=== PATIENT | female | born 1995 | race Two or more races ===

== ENCOUNTER 2018-05-18 13:30 | Inpatient (IN) | payer OTHER ==
[2018-05-18] MEDS ORDERED: AMPICILLIN SODIUM 2 GM VIAL ONE (15:28)
[2018-05-18] MEDS ORDERED: AMPICILLIN - 2 GM in SODIUM CHLORIDE 100 ML IVPB ONE (15:30)
[2018-05-18] MEDS: DEXTROSE 5%-LACTATED RINGERS 1,000 ML IV SCH ×2 (15:30→23:08)
[2018-05-18] MEDS ORDERED: TUBERCULIN PPD 5 TU/0.1ML SYRINGE (IN PATIENT USE ONLY) ID ONE (16:00)
[2018-05-18 16:04] VITALS: BMI 29.5
[2018-05-18 17:02] LABS: BASO % 0.6 % (0-2.0); EOS % 0.6 % (0-4.5); HEMATOCRIT 40.9 % (32.4-45.2); HEMOGLOBIN 13.8 GM/dL (10.7-15.3); LYMPH % 16.8 % (8-40); MCH 26.9 pg (25.7-33.7); MCHC 33.6 g/dl (32.0-36.0); MEAN CELL VOLUME 80.1 fl (80-96); MEAN PLT VOLUME 8.7 fl (7.5-11.1); MONO % 7.3 % (3.8-10.2); NEUT % 74.7 % (42.8-82.8); PLATELET COUNT 334 K/MM3 (134-434); RBC 5.11 M/mm3 (3.60-5.2); WHITE BLOOD COUNT 10.4 K/mm3 (4.0-10.0)
[2018-05-18 17:17] LABS: INR 0.94 (0.83-1.09); PROTHROMBIN TIME (PATIENT) 11.1 SEC (9.7-13.0)
[2018-05-18 17:33] LABS: ANION GAP 7 MMOL/L (8-16); BLOOD UREA NITROGEN 9 mg/dL (7-18); CALCIUM 9.2 mg/dL (8.5-10.1); CHLORIDE 105 mmol/L (98-107); CO2 25 mmol/L (21-32); CREATININE 0.9 mg/dL (0.55-1.3); GLUCOSE,RANDOM 68 mg/dL (74-106); POTASSIUM 4.9 mmol/L (3.5-5.1); SODIUM 137 mmol/L (136-145)
[2018-05-18] MEDS ORDERED: AMPICILLIN SODIUM 1 GM VIAL ONE ×2 (19:22→23:32)
[2018-05-18] MEDS: AMPICILLIN - 1 GM in SODIUM CHLORIDE 100 ML IVPB SCH ×2 (19:40→23:30)
[2018-05-18] MEDS ORDERED: BUTORPHANOL TARTRATE 2 MG/ML VIAL IVPB ONE (20:30)
[2018-05-18] MEDS ORDERED: PROMETHAZINE HCL 25 MG/1 ML VIAL IVPB ONE (20:30)
[2018-05-18] MEDS ORDERED: PROMETHAZINE HCL 25 MG/1 ML VIAL ONE (20:45)
[2018-05-18] MEDS ORDERED: BUTORPHANOL TARTRATE 1 MG/ML VIAL ONE ×2 (20:45)
[2018-05-18] MEDS ORDERED: OXYTOCIN 30 UNITS in 0.9% NS 30 UNIT/500 ML INFUS.BAG IVPB SCH (23:45)
--- NOTE | 2018-05-18 23:52 | HP ---
Past Medical History - Primary Care Physician PCP:: Harry Mendez - Admission Chief Complaint: 37 weeks, rom, early labor History of Present Illness: 22 yo f 37 weeks, with prom , clear fluid,, mild cramps ,cx 3 cm 80 vx -3, mr, fhr cat i , irregular contraction History Source: Patient Limitations to Obtaining History: No Limitations - Past Medical History ...: 1 ...Para: 0 ...Term: 0 ...: 0 ...Spon : 0 ...Induced : 0 ...Multiple Gestation: 0 ...LMP: 08/27/17 ... Weeks Gestation by Dates: 37.5 ...EDC by Dates: 06/03/18 ...EDC by Sono: 06/05/18 - Past Surgical History Hx Myomectomy: No Hx Transabdominal Cerclage: No - Smoking History Smoking history: Never smoked Have you smoked in the past 12 months: No - Alcohol/Substance Use Hx Alcohol Use: No - Social History Usual Living Arrangement: Yes: With Spouse Home Medications - Allergies Allergies/Adverse Reactions: Allergies Allergy/AdvReac Type Severity Reaction Status Date / Time No Known Allergies Allergy Verified 05/18/18 14:22 - Home Medications Home Medications: Ambulatory Orders Nitrofurantoin Macrocrystal [Nitrofurantoin] 100 mg PO BID 05/18/18 Pnv No.95/Ferrous Fum/Folic AC [ Formula] 1 each PO DAILY 05/18/18 Review of Systems - Review of Systems Constitutional: reports: No Symptoms Eyes: reports: No Symptoms HENT: reports: No Symptoms Neck: reports: No Symptoms Cardiovascular: reports: No Symptoms Respiratory: reports: No Symptoms Gastrointestinal: reports: No Symptoms Genitourinary: reports: No Symptoms Breasts: reports: No Symptoms Reported Musculoskeletal: reports: No Symptoms Integumentary: reports: No Symptoms Neurological: reports: No Symptoms Endocrine: reports: No Symptoms Hematology/Lymphatic: reports: No Symptoms Psychiatric: reports: No Symptoms Physical Exam - Maternity Vital Signs: Vital Signs Temperature 98.3 F 05/18/18 22:00 Pulse Rate 76 05/18/18 23:00 Respiratory Rate 20 05/18/18 23:00 Blood Pressure 104/56 L 05/18/18 23:00 O2 Sat by Pulse Oximetry (%) Constitutional: Yes: Well Nourished, No Distress, Calm Eyes: Yes: WNL, Conjunctiva Clear, EOM Intact HENT: Yes: WNL, Atraumatic, Normocephalic Neck: Yes: WNL, Supple, Trachea Midline Cardiovascular: Yes: WNL, Regular Rate and Rhythm Breast(s): Yes: WNL - Abdominal Exam/OB Fundal Height: 38 Number of Fetuses: Single Presentation: Vertex Contractions: Yes Regularity: Irregular Intensity: Mild Monitor Mode: External Heart Rate Location: [facility] Category: I Accelerations: Uniform Decelerations: None - Vaginal Exam/OB Vaginal Bleediing: No Speculum Exam: No Dilatation (cm): 3 cm Effacement (%): 80 Amniotic Membrane Status: Ruptured Nitrazine Test: Positive Amniotic Fluid: Yes: Clear Presentation: Vertex/Position Station: -3 - Physical Exam Musculoskeletal: Yes: WNL Edema: LLE: Trace, RLE: Trace Deep Tendon Reflex Grade: Normal +2 ...Motor Strength: WNL Psychiatric: Yes: WNL - Labs Lab Results: CBC, BMP 05/18/18 16:30 05/18/18 16:30 Hemorrhage Risk Assessment - Risk Factors Medium Risk Factors: Yes: None High Risk Factors: Yes: None Risk Score: 1 Risk Level: Medium Risk Problem List - Problems (1) with 37 weeks completed gestation Code(s): Z3A.37 - 37 WEEKS GESTATION OF (2) PROM (premature rupture of membranes) Code(s): O42.90 - SETH ROM, 7TH0 BETW RUPT & ONST LABR, UNSP WEEKS OF GEST Qualifiers: PROM onset of labor timing: onset of labor within 24 hours of rupture PROM gestational age: -third trimester Qualified Code(s): O42.013 - premature rupture of membranes, onset of labor within 24 hours of rupture, third trimester Assessment/Plan admit fhm pain mamagement if contraction not regiular , pitocin, rba discused
--- NOTE | 2018-05-18 23:54 | PN ---
Progress Note (short form) - Note Progress Note: cx 3 cm 80 vx -3 mr, clear, fhr cat i, irregular contraction Problem List - Problems (1) with 37 weeks completed gestation Code(s): Z3A.37 - 37 WEEKS GESTATION OF (2) PROM (premature rupture of membranes) Code(s): O42.90 - SETH ROM, 7TH0 BETW RUPT & ONST LABR, UNSP WEEKS OF GEST Qualifiers: PROM onset of labor timing: onset of labor within 24 hours of rupture PROM gestational age: -third trimester Qualified Code(s): O42.013 - premature rupture of membranes, onset of labor within 24 hours of rupture, third trimester
[2018-05-19] MEDS ORDERED: OXYTOCIN 30 UNITS in 0.9% NS 30 UNIT/500 ML INFUS.BAG IVPB ONE (00:10)
[2018-05-19] MEDS ORDERED: ELECTROLYTE-148 SOLN 1,000 ML IV SCH (00:30)
[2018-05-19] MEDS ORDERED: FENTANYL/BUPIVACAINE/NS/PF - PCEA - 50 ML DISP.SYRIN EP ONE (02:25)
[2018-05-19] MEDS ORDERED: NALOXONE HCL 0.4 MG/ML VIAL IVPUSH PRN (02:38)
[2018-05-19] MEDS ORDERED: BUPIVACAINE HCL/PF 0.25% (2.5MG/ML) 10 ML VIAL ONE (02:41)
[2018-05-19] MEDS ORDERED: LIDO 2%/EPI 1:200000 PRESRVFRE (20 ML SDVIAL) ONE (02:42)
[2018-05-19] MEDS ORDERED: FENTANYL/BUPIVACAINE/NS/PF - PCEA - 50 ML DISP.SYRIN EP SCH (02:45)
[2018-05-19] MEDS ORDERED: AMPICILLIN SODIUM 1 GM VIAL ONE (03:25)
[2018-05-19] MEDS ORDERED: SODIUM CHLORIDE 100 ML IVPB ONE (03:26)
[2018-05-19] MEDS: AMPICILLIN - 1 GM in SODIUM CHLORIDE 100 ML IVPB SCH ×2 (03:30→08:09)
[2018-05-19] MEDS ORDERED: LIDOCAINE HCL 1% PRESERVATIVE FREE - 30ML VIAL ONE ×2 (04:12→04:22)
[2018-05-19] MEDS ORDERED: OXYTOCIN 20 UNITS in 0.9% NS 20 UNIT/1,000 ML INFUS.BAG IV ONE ×2 (04:12→07:09)
[2018-05-19 05:08] LABS: VENOUS PH 7.33 (7.32-7.42)
[2018-05-19 05:09] LABS: VENOUS PC02 50.3 mmHg (38-52); VENOUS PO2 28.3 mmHg (28-48)
[2018-05-19] MEDS ORDERED: BENZOCAINE 28 GM HEMORRHOIDAL OINTMENT TP PRN (05:09)
[2018-05-19] MEDS ORDERED: METHYLERGONOVINE MALEATE 0.2 MG/1 ML AMP IM PRN (05:09)
[2018-05-19] MEDS ORDERED: BENZOCAINE 20% 57 GM BOTTLE TP PRN (05:09)
[2018-05-19] MEDS ORDERED: BISACODYL 10 MG SUPP.RECT RC PRN (05:09)
[2018-05-19] MEDS ORDERED: WITCH HAZEL 50% (TUCKS) 40 PAD/JAR PAD TP PRN (05:09)
[2018-05-19] MEDS ORDERED: D5W-LR W/ 20 UNITS OXYTOCIN 1,000 ML IV SCH (05:15)
[2018-05-19] MEDS ORDERED: OXYTOCIN 20 UNITS in 0.9% NS 20 UNIT/1,000 ML INFUS.BAG IV SCH (05:15)
[2018-05-19 05:18] LABS: ARTERIAL BLOOD GAS pH 7.28 (7.35-7.45)
[2018-05-19 05:19] LABS: ARTERIAL BLOOD GAS PCO2 57.6 mmHg (35-45)
[2018-05-19 05:20] LABS: ARTERIAL BLOOD GAS BASE EXCESS -1.1 meq/l (-2-2)
[2018-05-19 05:25] LABS: ARTERIAL BLOOD GAS PO2 18.4 mmHg (80-100)
[2018-05-19 05:26] LABS: ARTERIAL BLD GAS O2 SATURATION 17.5 % (90-98.9)
[2018-05-19] MEDS: IBUPROFEN 600 MG TABLET (FP) PO PRN ×2 (09:06→20:49)
[2018-05-19] MEDS: ACETAMINOPHEN 325 MG TABLET (FP) PO PRN ×2 (09:07→20:50)
[2018-05-19] MEDS: FERROUS SO4 325 MG TABLET (FP) PO SCH ×2 (09:07→21:03)
[2018-05-19] MEDS: PRENATAL VITAMINS W/ FOLIC ACID TABLET (FP) PO SCH (09:08)
[2018-05-20 07:27] LABS: BASO % 0.5 % (0-2.0); EOS % 0.7 % (0-4.5); HEMOGLOBIN 11.2 GM/dL (10.7-15.3); LYMPH % 22.9 % (8-40); MCH 26.4 pg (25.7-33.7); MCHC 33.1 g/dl (32.0-36.0); MEAN CELL VOLUME 79.9 fl (80-96); MEAN PLT VOLUME 8.6 fl (7.5-11.1); MONO % 7.3 % (3.8-10.2); NEUT % 68.6 % (42.8-82.8); PLATELET COUNT 258 K/MM3 (134-434); RBC 4.26 M/mm3 (3.60-5.2); RDW 14.1 % (11.6-15.6); WHITE BLOOD COUNT 14.1 K/mm3 (4.0-10.0)
[2018-05-20] MEDS: IBUPROFEN 600 MG TABLET (FP) PO PRN ×2 (08:17→19:56)
[2018-05-20] MEDS ORDERED: DIPHTH,PERTUSS(ACELL),TET 0.5 ML DISP.SYRIN IM ONE (10:00)
[2018-05-20] MEDS ORDERED: FLU VACCINE QUAD 60 MCG/0.5 ML (MDV 18-19) IM ONE (10:00)
[2018-05-20] MEDS: PRENATAL VITAMINS W/ FOLIC ACID TABLET (FP) PO SCH (10:04)
[2018-05-20] MEDS: FERROUS SO4 325 MG TABLET (FP) PO SCH ×2 (10:04→22:03)
--- NOTE | 2018-05-20 15:07 | PN ---
Post Progress Note - Subjective Subjective: 22 yo P1 status post vaginal delivery seen and evaluated. Doing well. Type of Delivery: Vital Signs: Vital Signs Temperature 98.3 F 05/20/18 10:00 Pulse Rate 81 05/20/18 10:00 Respiratory Rate 20 05/20/18 10:00 Blood Pressure 123/67 05/20/18 10:00 O2 Sat by Pulse Oximetry (%) 100 05/19/18 08:45 Breast Exam: Yes: Soft Uterus: Yes: Fundus Firm Abdomen/GI: Yes: Abdomen soft, Tolerating PO Lochia: Yes: Rubra Lochia, amount: Moderate Extremities: Yes: Calves non-tender Activity: Ambulating - Labs Labs: CBC WBC 14.1 K/mm3 (4.0-10.0) H 05/20/18 06:30 RBC 4.26 M/mm3 (3.60-5.2) 05/20/18 06:30 Hgb 11.2 GM/dL (10.7-15.3) 05/20/18 06:30 Hct 34.0 % (32.4-45.2) D 05/20/18 06:30 MCV 79.9 fl (80-96) L 05/20/18 06:30 MCH 26.4 pg (25.7-33.7) 05/20/18 06:30 MCHC 33.1 g/dl (32.0-36.0) 05/20/18 06:30 RDW 14.1 % (11.6-15.6) 05/20/18 06:30 Plt Count 258 K/MM3 (134-434) D 05/20/18 06:30 MPV 8.6 fl (7.5-11.1) 05/20/18 06:30 Absolute Neuts (auto) 9.6 K/mm3 (1.5-8.0) H 05/20/18 06:30 Neutrophils % 68.6 % (42.8-82.8) 05/20/18 06:30 Lymphocytes % 22.9 % (8-40) D 05/20/18 06:30 Monocytes % 7.3 % (3.8-10.2) 05/20/18 06:30 Eosinophils % 0.7 % (0-4.5) 05/20/18 06:30 Basophils % 0.5 % (0-2.0) 05/20/18 06:30 Nucleated RBC % 0 % (0-0) 05/20/18 06:30 Problem List - Problems (1) Status post normal vaginal delivery Code(s): [id number] - Assessment/Plan Status post vaginal delivery Stable Continue routine care
[2018-05-20] MEDS: ACETAMINOPHEN 325 MG TABLET (FP) PO PRN (19:57)
[2018-05-20 20:02] VITALS: TEMP 98
[2018-05-20] MEDS ORDERED: SENNOSIDES/DOCUSATE COMBO (SENNA PLUS) TABLET (UD) PO PRN (22:00)
--- NOTE | 2018-05-21 07:10 | DS ---
Physical Exam-TEST DATA DEVELOPER Vital Signs: Vital Signs Temperature 98.0 F 05/20/18 20:02 Pulse Rate 94 H 05/20/18 20:02 Respiratory Rate 20 05/20/18 20:02 Blood Pressure 112/65 05/20/18 20:02 O2 Sat by Pulse Oximetry (%) 100 05/20/18 20:31 Constitutional: Yes: Well Nourished, No Distress, Calm Eyes: Yes: WNL, Conjunctiva Clear, EOM Intact HENT: Yes: WNL, Atraumatic, Normocephalic Neck: Yes: WNL, Supple, Trachea Midline Cardiovascular: Yes: WNL, Regular Rate and Rhythm Respiratory: Yes: WNL, Regular, CTA Bilaterally Gastrointestinal: Yes: WNL ...Rectal Exam: Yes: WNL Renal/: Yes: WNL ....Post : Yes: Uterus firm, Uterus non-tender, Slight lochia rubra Breast(s): Yes: WNL Musculoskeletal: Yes: WNL Extremities: Yes: WNL Edema: Yes Edema: LLE: Trace, RLE: Trace Integumentary: Yes: WNL Neurological: Yes: WNL, Alert, Oriented ...Motor Strength: WNL Psychiatric: Yes: WNL, Alert, Oriented Labs: CBC, BMP 05/20/18 06:30 05/18/18 16:30 Delivery - Delivery Vaginal Delivery: Spontaneous (no complication) Type of Anesthesia: Epidural Episiotomy/Laceration: 2nd degree EBL (cc): 300 Delivery, Single - Stages of Labor Date 1st Stage Initiatied: 05/18/18 Time 1st Stage Initiated: 17:00 Date 2nd Stage Initiated: 05/19/18 Time 2nd Stage Initiated: 04:15 Date of Delivery: 05/19/18 Time of Delivery: 04:35 Time Placenta Delivered: 04:37 Placenta: Yes: Spontaneous - Condition of Manager User Experience/Chlorine Cell Tender Present: No Gender: Female Weight: 6 lb 2 oz Position: Left, OA Total Hours ROM (Hrs/Mins): 15hours/37min - 1 Minute Total Score: 9 5 Minutes Total Score: 9 - [place] Feeding Plan Initial Plan: Elected not to breastfeed exclusively throughout hospitalization Discharge Summary Reason For Visit: LABOR ADMISSION Current Active Problems PROM (premature rupture of membranes) (Acute) with 37 weeks completed gestation (Acute) Status post normal vaginal delivery (Acute) Procedures: Principal: Hospital Course: no complication Condition: Good - Instructions Diet, Activity, Other Instructions: regular diet, no intercourse, follow up [facility] care 4 weeks, if pain, heavy bleeding, fever to ER Referrals: Harry Mendez MD [Staff Physician] - Disposition: HOME - Home Medications Comprehensive Discharge Medication List: Ambulatory Orders Nitrofurantoin Macrocrystal [Nitrofurantoin] 100 mg PO BID 05/18/18 Pnv No.95/Ferrous Fum/Folic AC [ Formula] 1 each PO DAILY 05/18/18 Ibuprofen [Motrin -] 600 mg PO QID #28 tablet 05/20/18
[2018-05-21 10:12] VITALS: BP 110/68; PULSE 76
[2018-05-21] MEDS: IBUPROFEN 600 MG TABLET (FP) PO PRN (11:18)
[2018-05-21] MEDS: FERROUS SO4 325 MG TABLET (FP) PO SCH (11:18)
[2018-05-21] MEDS: ACETAMINOPHEN 325 MG TABLET (FP) PO PRN (11:19)
[2018-05-21] MEDS: PRENATAL VITAMINS W/ FOLIC ACID TABLET (FP) PO SCH (11:20)
== END 2018-05-21 13:50 | disposition home or self-care (01) | DRG 560 ==
LOC: JDEL 13:30 → JLDR 14:10 → J3W 05-19 08:36
PROVIDERS: ADMIT Obstetrics & Gynecology; ATTEND Obstetrics & Gynecology
PROC: 0KQM0ZZ Repair Perineum Muscle, Open Approach (ICD-10-PCS; principal; 2018-05-19)
PROC: 10E0XZZ Delivery of Products of Conception, External Approach (ICD-10-PCS; 2018-05-19)
DX: O42.02 Full-term premature rupture of membranes, onset of labor within 24 hours of rupture (principal); O70.1 Second degree perineal laceration during delivery; Z3A.37 37 weeks gestation of pregnancy; Z37.0 Single live birth
CPT/HCPCS: 36415; 36600; 59025; 59409; 80048; 82803; 85025; 85461; 85610; 85730; 86762; 86850; 86870; 86900; 86901; 86902; 86999; 87389; 90688; 90715; G0008